=== PATIENT | male | born 1975 ===

== ENCOUNTER 2018-01-27 16:39 | Emergency (ER) | payer OTHER ==
[2018-01-27 17:03] VITALS: TEMP 99
[2018-01-27 17:22] LABS: Basophils % (A) 0 %; Eosinophils # (A) 0.1 k/uL (0-0.7); Eosinophils % (A) 1 %; HCT 43.5 % (39.0-53.0); HGB 15.3 gm/dL (13.0-17.5); Lymphocytes # (A) 1.9 k/uL (1.0-4.8); Lymphocytes % (A) 23 %; MCH 30.6 pg (25.0-35.0); MCHC 35.2 g/dL (31.0-37.0); MCV 86.9 fL (80.0-100.0); Mean Platelet Volume 7.1; Monocytes # (A) 0.3 k/uL (0-1.0); Monocytes % (A) 4 %; Neutrophils # (A) 6.1 k/uL (1.3-7.7); Neutrophils % (A) 71 %; Platelet Count 291 k/uL (150-450); RDW 13.5 % (11.5-15.5); WBC 8.5 k/uL (3.8-10.6)
[2018-01-27 17:40] LABS: ALT 59 U/L (21-72); AST 35 U/L (17-59); Albumin 4.7 g/dL (3.5-5.0); Alkaline Phosphatase 75 U/L (38-126); Amylase 95 U/L (30-110); Anion Gap 11 mmol/L; Blood Urea Nitrogen 15 mg/dL (9-20); Carbon Dioxide 26 mmol/L (22-30); Chloride 105 mmol/L (98-107); Glucose 99 mg/dL (74-99); Lipase 137 U/L (23-300); Potassium 4.3 mmol/L (3.5-5.1); Sodium 142 mmol/L (137-145); Total Bilirubin 0.4 mg/dL (0.2-1.3); Total Protein 7.8 g/dL (6.3-8.2)
[2018-01-27 17:44] LABS: Appearance,Urine Clear (Clear); Bacteria,Urine Rare /hpf; Bilirubin,Urine Negative (Negative); Blood,Urine Moderate (Negative); Color,Urine Yellow; Glucose,Urine (UA) Negative (Negative); Ketones,Urine Negative (Negative); Leukocyte Esterase,Urine Negative (Negative); Mucus,Urine Rare /hpf; Protein,Urine Trace (Negative); RBC,Urine >182 /hpf (0-5); Specific Gravity,Urine 1.019 (1.001-1.035); Squamous Epithelial Cell,Urine <1 /hpf (0-4); Urobilinogen,Urine <2.0 mg/dL (<2.0); WBC,Urine 9 /hpf (0-5)
[2018-01-27] MEDS ORDERED: ONDANSETRON 4 MG TAB PO STA (17:55)
[2018-01-27] MEDS ORDERED: KETOROLAC 30 MG/ML 1 ML VIAL IM SCH (18:00)
--- NOTE | 2018-01-27 18:10 | ED ---
Abdominal Pain HPI - General Chief Complaint: Abdominal Pain Stated Complaint: Abd Pain Time Seen by Provider: 01/27/18 17:30 Source: patient Mode of arrival: ambulatory Limitations: language barrier - History of Present Illness Initial Comments: 42-year-old male presents with a chief complaint of abdominal pain for one day. Patient states he noticed the pain this morning. Patient describes pain as a sharp pain in his abdomen as well as his lower back and currently rates the pain at an 8 out of 10. Patient denies constipation or diarrhea, but has been taking loperamide for the pain which has not helped. He admits to pain while urinating in the suprapubic region as well as the lower back. He also describes a pain around his umbilicus. Patient admits to pain in his back when flexing his back, and states the pain is worse when he is sitting than standing. No pain when twisting or lateral bending in the back. He should also states the pain is worse with jarring movements such as walking. Patient denies any history of kidney stones as well as any other diseases of the abdomen. Patient is [place]-speaking and his son translated for him. - Related Data Home Medications Medication Instructions Recorded Confirmed Loperamide HCl [Imodium A-D] 2 mg PO DAILY PRN 01/27/18 01/27/18 Previous Rx's Medication Instructions Recorded HYDROcodone/APAP 5-325MG [Cowen 1 tab PO Q4HR PRN #12 tab 01/27/18 5-325] Ondansetron HCl [Zofran] 4 mg PO Q8HR PRN #14 tablet 01/27/18 Tamsulosin [Flomax] 0.4 mg PO DAILY #10 cap 01/27/18 Allergies Allergy/AdvReac Type Severity Reaction Status Date / Time No Known Allergies Allergy Verified 01/27/18 18:17 Review of Systems ROS Statement: Those systems with pertinent positive or pertinent negative responses have been documented in the HPI. ROS Other: All systems not noted in ROS Statement are negative. Past Medical History Past Medical History: No Reported History History of Any Multi-Drug Resistant Organisms: None Reported Past Surgical History: No Surgical Hx Reported Past Psychological History: No Psychological Hx Reported Smoking Status: Never smoker Past Alcohol Use History: None Reported Past Drug Use History: None Reported General Exam Limitations: language barrier General appearance: alert, in no apparent distress Head exam: Present: atraumatic, normocephalic, normal inspection Respiratory exam: Present: normal lung sounds bilaterally. Absent: respiratory distress, wheezes, rales, rhonchi, stridor Cardiovascular Exam: Present: regular rate, normal rhythm, normal heart sounds. Absent: systolic murmur, diastolic murmur, rubs, gallop, clicks GI/Abdominal exam: Present: tenderness (Mild diffuse tenderness of the abdomen. Slightly more tender around the suprapubic region. ), guarding, normal bowel sounds. Absent: mass, bruit, pulsatile mass, hernia Back exam: Present: CVA tenderness (R), CVA tenderness (L). Absent: full ROM ( Pain with flexion), tenderness Neurological exam: Present: alert, oriented X3, CN II-XII intact Psychiatric exam: Present: normal affect, normal mood Course Vital Signs 01/27/18 01/27/18 17:01 18:48 Temperature 99.0 F Pulse Rate 90 85 Respiratory 20 18 Rate Blood Pressure 140/89 138/87 O2 Sat by Pulse 100 96 Oximetry Medical Decision Making - Medical Decision Making 42-year-old male patient presents for abdominal pain times one day. Patient states he also has lower back pain that accompanies the abdominal pain, which also just started today. Patient states the pain is worse when he is urinating and describes the pain as being in the suprapubic region as well as the lumbar back. CBC showed no acute spike in white blood cells, no abnormalities with CMP. Patient does have moderate blood in his urine. Abdomen and pelvis CT noncontrast was ordered to rule out kidney stones. CT did show L sided obstructive uropathy with moderate hydronephrosis extending to L4 - L5 where a 4.5 mm calcification was seen. Patient will go home with Cowen, Zofran, Flomax , and Toradol and told to follow-up with nephrology. He was told to return to the ER if he has severely worsening pain or cannot urinate and patient understands these instructions. - Lab Data Result diagrams: 01/27/18 17:14 01/27/18 17:14 Lab Results 01/27/18 01/27/18 01/27/18 Range/Units 17:14 17:14 17:17 WBC 8.5 (3.8-10.6) k/uL RBC 5.00 (4.30-5.90) m/uL Hgb 15.3 (13.0-17.5) gm/dL Hct 43.5 (39.0-53.0) % MCV 86.9 (80.0-100.0) fL MCH 30.6 (25.0-35.0) pg MCHC 35.2 (31.0-37.0) g/dL RDW 13.5 (11.5-15.5) % Plt Count 291 (150-450) k/uL Neutrophils % 71 % Lymphocytes % 23 % Monocytes % 4 % Eosinophils % 1 % Basophils % 0 % Neutrophils # 6.1 (1.3-7.7) k/uL Lymphocytes # 1.9 (1.0-4.8) k/uL Monocytes # 0.3 (0-1.0) k/uL Eosinophils # 0.1 (0-0.7) k/uL Basophils # 0.0 (0-0.2) k/uL Sodium 142 (137-145) mmol/L Potassium 4.3 (3.5-5.1) mmol/L Chloride 105 (98-107) mmol/L Carbon Dioxide 26 (22-30) mmol/L Anion Gap 11 mmol/L BUN 15 (9-20) mg/dL Creatinine 0.96 (0.66-1.25) mg/dL Est GFR (CKD-EPI)AfAm >90 (>60 ml/min/1.73 sqM) Est GFR (CKD-EPI)NonAf >90 (>60 ml/min/1.73 sqM) Glucose 99 (74-99) mg/dL Calcium 10.0 (8.4-10.2) mg/dL Total Bilirubin 0.4 (0.2-1.3) mg/dL AST 35 (17-59) U/L ALT 59 (21-72) U/L Alkaline Phosphatase 75 (38-126) U/L Total Protein 7.8 (6.3-8.2) g/dL Albumin 4.7 (3.5-5.0) g/dL Amylase 95 (30-110) U/L Lipase 137 (23-300) U/L Urine Color Yellow Urine Appearance Clear (Clear) Urine pH 7.0 (5.0-8.0) Ur Specific [place] 1.019 (1.001-1.035) Urine Protein Trace H (Negative) Urine Glucose (UA) Negative (Negative) Urine Ketones Negative (Negative) Urine Blood Moderate H (Negative) Urine Nitrite Negative (Negative) Urine Bilirubin Negative (Negative) Urine Urobilinogen <2.0 (<2.0) mg/dL Ur Leukocyte Esterase Negative (Negative) Urine RBC >182 H (0-5) /hpf Urine WBC 9 H (0-5) /hpf Ur Squamous Epith Cells <1 (0-4) /hpf Urine Bacteria Rare H (None) /hpf Urine Mucus Rare H (None) /hpf Disposition Clinical Impression: Nephrolithiasis Disposition: HOME SELF-CARE Condition: Good Instructions: Kidney Stones (ED) Additional Instructions: If symptoms worsen severely you cannot urinate please return to the emergency department. Otherwise follow-up with urology. Please take ibuprofen for pain relief as well as Cowen as needed. Prescriptions: HYDROcodone/APAP 5-325MG [Cowen 5-325] 1 tab PO Q4HR PRN #12 tab PRN Reason: Pain Ondansetron HCl [Zofran] 4 mg PO Q8HR PRN #14 tablet PRN Reason: Nausea Tamsulosin [Flomax] 0.4 mg PO DAILY #10 cap Referrals: Nito Fung DO [Primary Care Provider] - 1-2 days Godfrey Sterling MD [STAFF PHYSICIAN] - 1-2 days Decision Time: 19:43
[2018-01-27 18:48] VITALS: BP 138/87; PULSE 85; RESP 18
--- NOTE | 2018-01-27 19:18 | CT ---
EXAMINATION TYPE: CT abdomen pelvis wo con DATE OF EXAM: 01/27/2018 COMPARISON: NONE HISTORY: Patient complains of midline abdomen pain. CT DLP: 1064 mGycm Automated exposure control for dose reduction was used. TECHNIQUE: Helical acquisition of images was performed from the lung bases through the pelvis. FINDINGS: KIDNEYS AND URETERS AND BLADDER: There is obstructive uropathy on the ipsilateral left, with moderate hydronephrosis and with engorgement of the left kidney. The hydronephrosis extends to the L4-5 level where there is a 4.5 mm calcification causing the obstruction. No other calcifications in the kidney s and ureters and bladder. LIVER/GB: No significant abnormality is appreciated. PANCREAS: No significant abnormality is seen. SPLEEN: No significant abnormality is seen. ADRENALS: No significant abnormality is seen. FREE AIR: No free air is visualized RETROPERITONEAL ADENOPATHY: None visualized REPRODUCTIVE ORGANS: No significant abnormality is seen PELVIC ADENOPATHY: None visualized. OSSEOUS STRUCTURES: No significant abnormality is seen. BOWEL: No significant abnormality is seen. LUNG BASES: No significant abnormality is appreciated. IMPRESSION: MODERATE OBSTRUCTIVE UROPATHY ON THE ITS LATERAL LEFT, SECONDARY TO 4.5 MILLIMETER MID URETERAL CALCI FICATION .
--- NOTE | 2018-01-27 20:12 | XR ---
EXAMINATION TYPE: XR KUB 2 views DATE OF EXAM: 01/27/2018 COMPARISON: NONE HISTORY: Obstructive uropathy on the left TECHNIQUE: 2 upright views FINDINGS: A 4.5 mm calcification is noted at the L4-5 level on the left. The bones and soft tissues a re otherwise unremarkable. IMPRESSION: Left mid ureteral calcification noted at the L4-5 level.
== END 2018-01-27 20:21 | disposition home or self-care (01) ==
LOC: EC 16:39
DX: N13.2 Hydronephrosis with renal and ureteral calculous obstruction (principal)
CPT/HCPCS: 36415; 80053; 82150; 83690; 85025; 81001; 87086; 74018; 74176; 99284; 96372; J1885